=== PATIENT | male | born 1980 | race African-American/Black ===

== ENCOUNTER 2018-01-22 12:47 | Emergency (ER) | payer MEDICAID ==
[~2018-01-22] VITALS: Ht 195.6 cm; Wt 106.8 kg
[2018-01-22 12:49] VITALS: Ht 195.6 cm; Wt 106.8 kg
[2018-01-22] MEDS ORDERED: CELEXA20 MG PO (12:51)
[2018-01-22] MEDS ORDERED: DESERYL50 M2 PO (12:51)
[2018-01-22] MEDS ORDERED: SEROQUEL25 MG PO (12:51)
[2018-01-22] MEDS ORDERED: GABAPENTIN100 MG PO (12:52)
[2018-01-22] MEDS ORDERED: DEPAKOTE500 MG PO (12:52)
[2018-01-22 14:00] VITALS: BP 142/078
== END 2018-01-22 14:01 | disposition home or self-care (01) ==
LOC: D.ER 12:47
DX: R45.4 Irritability and anger (principal); F43.20 Adjustment disorder, unspecified; F20.9 Schizophrenia, unspecified; F17.200 Nicotine dependence, unspecified, uncomplicated

== ENCOUNTER 2018-01-30 00:23 | Emergency (ER) | payer MEDICAID ==
[~2018-01-30] VITALS: Ht 195.6 cm; Wt 104.3 kg
[~2018-01-30 00:23] MED LIST: CELEXA20 MG PO; DEPAKOTE500 MG PO; DESERYL50 M2 PO; GABAPENTIN100 MG PO; SEROQUEL25 MG PO
[2018-01-30 00:31] VITALS: Ht 195.6 cm; Wt 104.3 kg
[2018-01-30 00:46] LABS: BASOPHILS 0.2 % (0-2); EOSINOPHILS 0.9 % (0-7); HEMATOCRIT 44.7 % (42.0-54.0); HEMOGLOBIN 15.8 g/dL (13.5-17.5); IMMATURE GRANULOCYTES 0.3 % (0-5); LYMPHOCYTES 23.8 % (15-50); MCH 31.5 pg (26.0-34.0); MCHC 35.3 g/dL (31.0-37.0); MEAN PLATELET VOLUME 12.6 fL (7.4-10.4); MONOCYTES 10.8 % (2-11); PLATELET COUNT 183 10x3/uL (130-400); RBC 5.02 10x6/uL (4.20-6.10); RDW 14.9 % (11.5-14.5); WBC 9.8 10x3/uL (4.8-10.8)
[2018-01-30 01:00] LABS: ALBUMIN 4.1 g/dL (3.4-5.0); ANION GAP 14.8 mmol/L (8-16); BILIRUBIN - TOTAL 1.25 mg/dL (0.2-1.3); CALCIUM 8.8 mg/dL (8.5-10.1); CARBON DIOXIDE 24.8 mmol/L (21.0-32.0); CREATININE - SERUM 1.2 mg/dL (0.6-1.3); POTASSIUM - SERUM 3.6 mmol/L (3.5-5.1); PROTEIN - SERUM 8.2 g/dL (6.4-8.2)
[2018-01-30 02:46] LABS: APPEARANCE CLEAR (CLEAR); BILIRUBIN NEGATIVE (NEGATIVE); COLOR YELLOW (YELLOW); GLUCOSE NEGATIVE (NEGATIVE); KETONE NEGATIVE (NEGATIVE); NITRITE NEGATIVE (NEGATIVE); PROTEIN NEGATIVE (NEGATIVE); SPECIFIC GRAVITY 1.025 (1.005-1.020); UROBILINOGEN NORMAL (NORMAL)
[2018-01-30 02:54] LABS: UDS - AMPHET POSITIVE QUAL (NEGATIVE); UDS - BARB NEGATIVE QUAL (NEGATIVE); UDS - BENZO NEGATIVE QUAL (NEGATIVE); UDS - COCAINE NEGATIVE QUAL (NEGATIVE); UDS - OPIATE NEGATIVE QUAL (NEGATIVE); UDS - PCP NEGATIVE QUAL (NEGATIVE); UDS - THC POSITIVE QUAL (NEGATIVE)
[2018-01-30 05:59] VITALS: BP 122/85
== END 2018-01-30 06:00 ==
LOC: D.ER 00:23
PROVIDERS: Family Medicine
DX: R45.851 Suicidal ideations (principal); F15.10 Other stimulant abuse, uncomplicated; Z86.59 Personal history of other mental and behavioral disorders